=== PATIENT | female | born 1960 | race Two or more races ===

== ENCOUNTER 2018-09-19 05:55 | Day surgery (SDC) | payer OTHER ==
[~2018-09-19 05:55] MED LIST: LIPITOR20 MG PO
[2018-09-19] MEDS ORDERED: CAMBIA50 MG PO (14:41)
[2018-09-19] MEDS ORDERED: ULTRACET PO (14:48)
== END 2018-09-19 17:15 | disposition home or self-care (01) ==
LOC: CIR.AMB 05:55
DX: D27.1 Benign neoplasm of left ovary (principal); N73.6 Female pelvic peritoneal adhesions (postinfective)

== ENCOUNTER 2021-04-07 12:53 | Outpatient (CLI) | payer OTHER ==
[~2021-04-07 12:53] MED LIST changes: +CAMBIA50 MG PO; +ULTRACET PO
== END 2021-04-07 13:31 | disposition home or self-care (01) ==
LOC: LAB 12:53
PROVIDERS: ATTEND Radiology Diagnostic Radiology
DX: R31.21 Asymptomatic microscopic hematuria (principal)

== ENCOUNTER 2021-04-20 08:10 | Outpatient (CLI) | payer OTHER | END 2021-04-20 09:00 | disposition home or self-care (01) | LOC: TOM 08:10 | PROVIDERS: ATTEND Urology | DX: N28.1 Cyst of kidney, acquired (principal); R31.21 Asymptomatic microscopic hematuria ==

== ENCOUNTER 2025-06-26 09:57 | Outpatient (CLI) | payer OTHER | END 2025-06-26 10:05 | disposition home or self-care (01) | LOC: LAB 09:57 | PROVIDERS: ATTEND Orthopaedic Surgery | DX: E56.1 Deficiency of vitamin K (principal); E55.9 Vitamin D deficiency, unspecified; M85.9 Disorder of bone density and structure, unspecified; N39.0 Urinary tract infection, site not specified; R30.0 Dysuria ==

== ENCOUNTER 2025-07-30 14:16 | Outpatient (CLI) | payer OTHER | END 2025-07-30 14:19 | disposition home or self-care (01) | LOC: RAD 14:16 | PROVIDERS: ATTEND Obstetrics & Gynecology | DX: R10.20 Pelvic and perineal pain unspecified side (principal); D27.1 Benign neoplasm of left ovary; D25.1 Intramural leiomyoma of uterus; D25.0 Submucous leiomyoma of uterus; R93.5 Abnormal findings on diagnostic imaging of other abdominal regions, including retroperitoneum; R39.15 Urgency of urination; N39.3 Stress incontinence (female) (male); R31.29 Other microscopic hematuria; Z01.810 Encounter for preprocedural cardiovascular examination; Z01.811 Encounter for preprocedural respiratory examination ==

== ENCOUNTER 2025-08-04 11:15 | Inpatient (IN) | payer OTHER ==
[~2025-08-04] VITALS: Ht 162.6 cm; Wt 87.1 kg
[2025-08-04 11:24] VITALS: BP 119/72
[2025-08-06] MEDS ORDERED: CEFAZOLIN SODIUM 1,000 MG VIAL ONE (06:33)
[2025-08-06] MEDS ORDERED: POVIDONE-IODINE 118 ML BOTT TOP ONE ×2 (07:14→09:18)
[2025-08-06] MEDS ORDERED: HEMOSTATIC MATRIX 1 KIT KIT TOP ONE (09:33)
[2025-08-06] MEDS ORDERED: SUGAMMADEX SODIUM 200 MG/2 ML VIAL IV ONE (10:07)
[2025-08-06] MEDS ORDERED: ONDANSETRON HCL 2 MG/ML VIAL IV PRN (14:30)
[2025-08-06] MEDS ORDERED: RINGERS SOLUTION,LACTATED 1,000 ML IV SCH (14:30)
[2025-08-06] MEDS ORDERED: MORPHINE SULFATE 4 MG/ML CARTRIDGE IV PRN (15:00)
[2025-08-06] MEDS ORDERED: ENOXAPARIN SODIUM 40 MG/0.4 ML SYRINGE SUBCUTANEO SCH ×3 (16:12→21:00)
[2025-08-06 16:52] LABS: BASO % 0.2 % (0.1-1.2); EOS # 0.00 (0.04-0.54); EOS % 0.0 % (0.7-7.0); LYMPH # 0.46 (1.18-3.74); LYMPH % 3.0 % (19.3-53.1); MEAN PLATELET VOLUME 10.60 fl (9.4-12.4); MONO # 0.78 (0.24-0.82); MONO % 5.0 % (4.7-12.5); NEUT # 14.16 (1.56-6.13); NEUT % 91.6 % (34.0-71.1); RED CELL DISTRIBUTION WIDTH 13.3 % (11.6-14.4)
[2025-08-06] MEDS ORDERED: CEFOXITIN SODIUM 2,000 MG VIAL IV SCH (17:00)
[2025-08-06 17:34] VITALS: BP 119/72
[2025-08-06] MEDS ORDERED: KETOROLAC TROMETHAMINE 30 MG VIAL IV SCH (21:00)
[2025-08-07 01:21] VITALS: BP 115/68
[2025-08-07 05:55] VITALS: BP 101/61
[2025-08-07 06:51] LABS: BASO % 0.1 % (0.1-1.2); EOS # 0.00 (0.04-0.54); EOS % 0.0 % (0.7-7.0); LYMPH # 0.77 (1.18-3.74); LYMPH % 7.2 % (19.3-53.1); MEAN PLATELET VOLUME 11.00 fl (9.4-12.4); MONO # 0.90 (0.24-0.82); MONO % 8.4 % (4.7-12.5); NEUT # 9.01 (1.56-6.13); NEUT % 84.1 % (34.0-71.1); RED CELL DISTRIBUTION WIDTH 12.8 % (11.6-14.4)
[2025-08-07 08:00] VITALS: BP 93/55
[2025-08-07] MEDS ORDERED: ACETAMINOPHEN WITH CODEINE 1 UDTAB TABLET PO PRN ×2 (09:00→14:32)
[2025-08-07 16:00] VITALS: BP 111/66
[2025-08-07] MEDS ORDERED: DOCUSATE SODIUM 100MG CAP PO SCH (17:00)
[2025-08-07] MEDS ORDERED: GABAPENTIN 100 MG CAPSULE PO SCH (17:00)
[2025-08-08 00:43] VITALS: BP 101/64
[2025-08-08 04:00] VITALS: BP 97/68
[2025-08-08 09:53] VITALS: BP 124/73
[2025-08-08] MEDS ORDERED: DICLOFENAC POTA50 MG PO (16:05)
[2025-08-08] MEDS ORDERED: ACETAMINOPHEN-1 EAC2 PO (16:05)
[2025-08-08] MEDS ORDERED: COLACE100 MG PO (16:06)
== END 2025-08-08 16:28 | disposition home or self-care (01) | DRG 743 ==
LOC: SURH → O/R 08-06 06:00 → SURH 08-06 07:00 → OB/GYN 08-06 13:33 → SURH 08-06 15:19 → OB/GYN 08-08 16:28
PROVIDERS: ADMIT Obstetrics & Gynecology; ATTEND Obstetrics & Gynecology
PROC: 0UT50ZZ Resection of Right Fallopian Tube, Open Approach (ICD-10-PCS; 2025-08-06)
PROC: 0UT00ZZ Resection of Right Ovary, Open Approach (ICD-10-PCS; 2025-08-06)
PROC: 0UT90ZZ Resection of Uterus, Open Approach (ICD-10-PCS; principal; 2025-08-06 07:00)
DX: D25.1 Intramural leiomyoma of uterus (principal); D25.2 Subserosal leiomyoma of uterus; N72 Inflammatory disease of cervix uteri